=== PATIENT | male | born 1970 | race Caucasian/White ===

== ENCOUNTER 2018-03-04 15:35 | Inpatient (IN) ==
[2018-03-04] MEDS ORDERED: Aluminum/Magnesium/Simethacone Susp 30 ML UDC PO PRN (20:03)
[2018-03-05] MEDS ORDERED: Influenza (Quadrivalent) Vaccine 0.5 ML Syringe IM ONE (09:00)
[2018-03-05] MEDS: Acetaminophen 325 MG Tablet PO PRN ×2 (09:44→16:00)
[2018-03-05] MEDS ORDERED: Loperamide 2 MG Capsule PO PRN (11:03)
[2018-03-05] MEDS ORDERED: Methocarbamol 500 MG Tablet PO PRN (11:04)
[2018-03-05] MEDS: QUEtiapine 100 MG Tablet PO SCH ×2 (11:41→21:38)
--- NOTE | 2018-03-05 12:39 | P.TTN ---
- Patient Problems Problems: 1. Discharge planning 2. Medication compliance 3. Knowledge deficit 4. Lack of coping skills - Progress Toward Goals Provider Present: Dr. Hemanth Kwon (Dr. Kwon will meet with the patient today to determine if the patient needs to remain for further stabilization.) Psychiatric Counselors Present: Manfred Carr Jr., [facility] (Patient reports he lives with a friend and will return upon discharge.) Group Spec/RT/OT/BEATTY Present: ROGERIO Stafford (Patient does not attend groups at this time.) - Documentation Teaching Recipient: Patient
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
--- NOTE | 2018-03-05 14:11 | P.DIET ---
Nutritional Evaluation Type of nutrition evaluation: initial Nutrition consult regarding: Diet Evaluation Nutrition screening: Weight Loss > 10 lbs Screening comments: 03/04 WLS Objective - Diagnosis depression, SI - Objective Body Mass Index: 24.8 % IBW: 113 (IBW = 124lb) Body Weight Used for Calculations: Actual (63.5kg) Energy Needs - Lower Range (kCal/kg): 22 Energy Needs - Upper Range (kCal/kg): 28 Lower Limit kCal/kg (kCals): 1,395 Upper Limit kCal/kg (kCals): 1,778 Lower Limit Protein Factor (Grams per Kg): 1.1 Upper Limit Protein Factor (Grams per Kg): 1.3 Lower Protein Needs (Protein): 70 Upper Protein Needs (Protein): 83 Dietitian Reviewed in Medical Record: Current diet, Curent medications, Intake & Output, Labs, Medical history Diet Order: regular Oral Diet Intake Amount: Excellent 90%+ Assessment Assessment: Pt currently at nutritional risk r/t reported unplanned wt loss more than 10 lbs. Pt has a good appetite, eating 100% of most meals. RD will continue to assess pts needs for a PO supplement. Continue to monitor PO intake. Wt noted, CBW = 63.5kg. Dietitian following. Recommendations: 1. RD will continue to assess pts needs for a PO supplement 2. Continue to monitor PO intake 3. Dietitian following Dietitian to Monitor: Lab values, Intake & Output, PO Intake
--- NOTE | 2018-03-05 17:47 | P.CONIM ---
History of Present Illness Service: [facility] Consult date: 03/05/18 Requesting Physician: Jj Kwon Reason for Consult: Cellulitis Primary Care Provider: UNKNOWN Chief Complaint: "Left Foot Pain" History of Present Illness: Patient is a 47-year-old male with past medical history reported to be HIV, hep C, opiate dependence who initially came into the hospital transferred from [place] emergency department for suicidal ideation with plan to overdose. Patient is now admitted to psychiatry unit for further evaluation. Consulted for assistance with complaints of left foot pain/cellulitis. Patient seen and examined today. Laying in bed. Responds to questions and commands. On the behavior of looking around while talking. States that he has been walking around barefoot and has wounds on his foot. States he does not know how long as the wound been there but states it has been cleaned out when he got admitted to the hospital. Patient states he continues to walk barefoot in the unit. Admits to tobacco use, every day alcohol use, illicit drug use marijuana, cocaine, heroin stating "all the drugs out there." Denies fevers, chills, nausea, vomiting. Denies any chest pain, palpitation, headaches. Denies inability to walk but states it is painful to walk with the wounds. Review of Systems All other systems reviewed negative except as stated in HPI PMFSH - History History Provided By: Patient - Medical History Medical History: Medical History (Last Updated 03/05/18 @ 17:42 by JESSICA Bhagat) HIV (human immunodeficiency virus infection) Hepatitis C - Surgical History Surgical History: Surgical History (Last Updated 03/05/18 @ 17:41 by JESSICA Bhagat) No history of previous surgery - Family History Family History: Family History (Last Reviewed 03/05/18 @ 17:41 by JESSICA Bhagat) Mother Schizophrenia Other Substance abuse - Social History I have reviewed the patient's Social History: Yes - Tobacco History Second Hand Smoke Exposure: Yes Tobacco Use In Past 30 Days: Yes Smoking Status: Heavy tobacco smoker Tobacco Type: Cigarettes Packs Per Day: 1 Number of Pack Years (if former smoker): 20 - Alcohol History How Often Do You Have a Drink Containing Alcohol: 4 or more times a week - Substance Use History Substance History: Active Abuse - Substance Use Type Opiates Status: Active Route Used: Intravenously Frequency: DAILY Last Used: 03/03/2018 Reason for Use: Feels Good Comment: Patient reports he last used 2 days prior. Crack/Cocaine Status: Active Route Used: Inhalation, Intravenously Frequency: OCCASIONAL Reason for Use: Feels Good - Travel History Recent Travel in the [place] Within the Last 8 Weeks: No Recent Travel Out of the Country Within the Last 8 Weeks: No - Immunization History Tetanus Immunization: Unsure Hx Influenza Vaccine This Season: No Medications and Allergies Active Medications: Active Medications Acetaminophen (Tylenol) 650 mg PO Q4H PRN PRN Reason: Pain 1-5 or Temp >101F Last Admin: 03/05/18 09:44 Dose: 650 mg Al Hydrox/Mg Hydrox/Simethicone (Mag-Al Plus Susp Liq) 30 ml PO Q6H PRN PRN Reason: DYSPEPSIA Last Admin: 03/05/18 09:44 Dose: 30 ml Al Hydroxide/Mg Hydroxide (Milk Of Magnesia Liq) 30 ml PO DAILY PRN PRN Reason: CONSTIPATION Al Hydroxide/Mg Hydroxide (Milk Of Magnesia Liq) 30 ml PO Q12H PRN PRN Reason: Mild Constipation Bacitracin (Baciguent Oint) 1 applicatio TOPICAL BID [facility] Clonidine HCl (Catapres) 0.1 mg PO Q6H PRN PRN Reason: opiate withdrawal Last Admin: 03/05/18 11:50 Dose: 0.1 mg Diphenhydramine HCl (Benadryl) 50 mg PO HS PRN PRN Reason: INSOMNIA Hydroxyzine HCl (Atarax) 50 mg PO Q6H PRN PRN Reason: ANXIETY Last Admin: 03/05/18 09:44 Dose: 50 mg Ibuprofen (Motrin) 800 mg PO Q8H PRN PRN Reason: Acute Pain Last Admin: 03/05/18 11:49 Dose: 800 mg Loperamide HCl (Imodium) 2 mg PO Q4H PRN PRN Reason: diarrhea Methocarbamol (Robaxin) 750 mg PO Q6HR PRN PRN Reason: MUSCLE PAIN Last Admin: 03/05/18 16:01 Dose: 750 mg Nicotine (Habitrol 21 Mg Patch.24 Hr) 1 patch T-DERMAL DAILY [facility] Last Admin: 03/05/18 09:39 Dose: Not Given Ondansetron HCl (Zofran Odt) 4 mg PO Q6H PRN PRN Reason: NAUSEA Last Admin: 03/05/18 11:50 Dose: 4 mg Patch Removal (Remove Old Patch) 1 each T-DERMAL HS [facility] Quetiapine Fumarate (Seroquel) 100 mg PO BID [facility] Last Admin: 03/05/18 11:41 Dose: 100 mg Allergies Allergy/AdvReac Type Severity Reaction Status Date / Time bee venom protein (honey bee) Allergy Severe Anaphylaxis Verified 03/04/18 18:26 Home Medications Medication Instructions Recorded Confirmed Type buprenorphine-naloxone [Suboxone] 1 tab SUBLINGUAL BID 03/05/18 03/05/18 History Exam Vital signs: Vital Signs 03/04/18 18:00 03/05/18 05:39 03/05/18 11:50 Temperature 98.5 F 98.1 F Pulse Rate 71 68 59 L Respiratory Rate 18 18 12 Blood Pressure 124/68 147/81 H 141/73 H Pulse Oximetry 97 99 98 03/05/18 16:01 Temperature 98.2 F Pulse Rate 51 L Respiratory Rate 17 Blood Pressure 153/72 H Pulse Oximetry 100 Intake & Output 03/04/18 03/05/18 03/05/18 18:59 06:59 18:59 Weight 63.503 kg Other: Weight On Admission 63.503 kg Narrative: GENERAL: This is a well-developed patient, in no apparent distress. SKIN: Warm and dry. Bilateral foot with multiple lacerations in the area of the plantar region at the bottom of toe joints. Plantar region pink, tender to touch HEENT: Normocephalic. Pupils equal round and reactive. Nose without bleeding. Airway patent. NECK: Trachea midline. CARDIOVASCULAR: Regular rate and rhythm without murmurs, gallops, or rubs. RESPIRATORY: Clear to auscultation. Breath sounds equal bilaterally. No wheezes , rales, or rhonchi. GASTROINTESTINAL: Abdomen soft, non-tender, nondistended. Bowel Sounds normoactive x4. MUSCULOSKELETAL: Extremities without clubbing, cyanosis, or edema. NEUROLOGICAL: Awake and alert.No focal neuro deficit. Moves all extremities. Normal speech. Assessment and Plan - Plan Patient is a 47-year-old male with past medical history reported to be HIV, hep C, opiate dependence who initially came into the hospital transferred from [place] emergency department for suicidal ideation with plan to overdose. Patient is now admitted to psychiatry unit for further evaluation. Consulted for assistance with complaints of left foot pain/cellulitis Suicidal ideation Depression -Managed by psychiatry team Cellulitis Multiple wound under the foot left greater than the right -Appears to be from walking barefoot, patient appears to be homeless -Bacitracin, Keflex times 5 days -Keep wounds clean -Needs to wear foot wear or socks at least in the unit, this has been discussed with nursing HIV Hep C -Patient reports not on any medication -Check HIV status, Hepatitis status. No record of HIV/ Hep status -Refer to outpatient clinic to start regimen, will not start on any regimen DVT prop ambulatory Code Status: Full code Discussed Condition With: Patient, nurse Discharge Planning: DC disposition by primary team
[2018-03-05] MEDS ORDERED: Haloperidol Inj 5 MG/ML Ampul IM ONE (21:15)
[2018-03-05] MEDS ORDERED: Haloperidol Inj 5 MG/ML Ampul ONE (21:20)
[2018-03-06 08:07] LABS: Baso # (Auto) 0.1 th/mm3 (0.0-0.2); Baso % (Auto) 0.3 % (0.0-2.0); Eos % (Auto) 0.2 % (0.0-4.0); Hematocrit 42.1 % (39.0-51.0); Hemoglobin 14.3 gm/dL (13.0-17.0); Lymph # (Auto) 3.2 th/mm3 (1.0-4.8); Lymph % (Auto) 21.8 % (9.0-44.0); Mean Corpuscular Volume 100.1 fL (80.0-100.0); Mean Platelet Volume 9.1 fL (7.0-11.0); Mono # (Auto) 0.9 th/mm3 (0.0-0.9); Mono % (Auto) 5.9 % (0.0-8.0); Neut # (Auto) 10.7 th/mm3 (1.8-7.7); Neut % (Auto) 71.8 % (16.0-70.0); Platelet Count 244 th/mm3 (150-450); Red Blood Count 4.21 mil/mm3 (4.50-5.90); Red Cell Distribution Width 15.8 % (11.6-17.2); White Blood Count 14.9 th/mm3 (4.0-11.0)
[2018-03-06] MEDS: QUEtiapine 100 MG Tablet PO SCH ×2 (08:10→20:03)
[2018-03-06 08:36] LABS: Anion Gap 8 meq/L (5-15); Blood Urea Nitrogen 13 mg/dL (7-18); Calcium 8.6 mg/dL (8.5-10.1); Carbon Dioxide 22.3 meq/L (21.0-32.0); Chloride 102 meq/L (98-107); Glomerular Filtration Rate Greater Than 89 mL/min (>89); Glucose,Random 113 mg/dL (74-106); Potassium 3.8 meq/L (3.5-5.1); Sodium 132 meq/L (136-145)
[2018-03-06 09:49] LABS: Albumin 3.1 g/dL (3.4-5.0)
[2018-03-06 09:51] LABS: Total Protein 8.4 g/dL (6.4-8.2)
[2018-03-06 10:46] LABS: Hepatitis A IgM Antibody Reactive (Nonreactive); Hepatitits B Surface Antigen Reactive (Nonreactive)
--- NOTE | 2018-03-06 13:30 | P.PNPSY ---
Subjective Chief Complaint: Depression with suicidal ideation Remarks: Patient seen in his room with medical student Edgard and nurse Estella, chart reviewed, patient compliant medication. Patient laying in bed with covers to his chin. Patient is calm and more cooperative with me today that appears she did have some behavioral issues late last night necessitating MDT of [facility]. However today he is calm and cooperative he did allow the laboratory to be drawn this morning and he has signed the voluntary admission forms. Today he denies suicidality but states he still is under stress. They now acknowledges his homelessness and his long distance walking around town. He states he is able to go to his father's for a while but they do get along okay. For now continue treatment consider possible discharge tomorrow to his family Review of Systems All other systems reviewed negative except as stated in HPI Mental Status Examination Appearance: Appropriate, Disheveled Consciousness: Alert Orientation: x4 Motor Activity: Normal gait Speech: Unremarkable Language: Adequate Fund of Knowledge: Adequate Attention and Concentration: Adequate (Fair) Memory: Unremarkable (Fair) Mood: Sad, Irritable (Improved), Other (Entitled) Affect: Other (Good range and intensity) Thought Process & Associations: Intact Thought Content: Appropriate Hallucination Type: Auditory (Vague) Delusion Type: Paranoid (Mildly) Suicidal Ideation: Yes (Denies today's) Suicidal Plan: No Suicidal Intention: No Homicidal Ideation: No Homicidal Plan: No Homicidal Intention: No Insight: Poor Judgment: Poor Assessment and Plan - Assessment (1) Unspecified psychosis Code(s): F29 - Unspecified psychosis not due to a substance or known physiological condition Status: Acute (2) Substance induced mood disorder Code(s): F19.94 - Other psychoactive substance use, unspecified with psychoactive substance-induced mood disorder Status: Acute (3) Opiate dependence Code(s): F11.20 - Opioid dependence, uncomplicated Status: Acute - Plan Plan: Estimated LOS: [] days Patient somewhat calmer and more focused today. He is not as angry. He is compliant with medication. He denies suicidality today. He does acknowledge that he can return home with his father once he is discharged. Patient continues to approval discharged tomorrow Justification for Continued Inpatient Stay: At this time patient may need decompensated placed on a lower level of care Discharge Planning: Possible return home with his father Request Healthcare Surrogate/Guardian Advocate?: No (3) Opiate dependence Qualifiers: Substance use status: in withdrawal Qualified Code(s): F11.23 - Opioid dependence with withdrawal
--- NOTE | 2018-03-06 16:23 | P.PNIM ---
Subjective Interval history: Follow-up visit bilateral foot cellulitis, hepatitis ABC. Patient seen and examined today. Patient states that bilateral foot has improved and is not as painful anymore. Discussed with patient results of labs. Verbalized understanding. Denies pain and discomfort. Denies SOB/ dyspnea. Denies chest pain, palpitations, headaches, dizziness. Denies fevers, chills, n/v/d. Denies hematuria, dysuria. Physical Exam Vital signs: Intake & Output 03/05/18 03/06/18 03/06/18 18:59 06:59 18:59 Other: Date of Last Bowel Movement 03/06/18 Narrative: GENERAL: This is a well-developed patient, in no apparent distress. SKIN: Warm and dry. Bilateral foot with multiple lacerations in the area of the plantar region at the bottom of toe joints. Plantar region pink, tender to touch HEENT: Normocephalic. Pupils equal round and reactive. Nose without bleeding. Airway patent. NECK: Trachea midline. CARDIOVASCULAR: Regular rate and rhythm without murmurs, gallops, or rubs. RESPIRATORY: Clear to auscultation. Breath sounds equal bilaterally. No wheezes , rales, or rhonchi. GASTROINTESTINAL: Abdomen soft, non-tender, nondistended. Bowel Sounds normoactive x4. MUSCULOSKELETAL: Extremities without clubbing, cyanosis, or edema. NEUROLOGICAL: Awake and alert.No focal neuro deficit. Moves all extremities. Normal speech. Results - Labs CBC & Chem 7: 03/06/18 07:08 03/06/18 07:08 Laboratory Results - last 24 hr 03/06/18 03/06/18 03/06/18 07:08 07:08 09:03 WBC 14.9 H RBC 4.21 L Hgb 14.3 Hct 42.1 MCV 100.1 H MCH 34.0 MCHC 34.0 RDW 15.8 Plt Count 244 MPV 9.1 Neut % (Auto) 71.8 H Lymph % (Auto) 21.8 [place]ides % (Auto) 5.9 Eos % (Auto) 0.2 Baso % (Auto) 0.3 Neut # (Auto) 10.7 H Lymph # (Auto) 3.2 [place]ides # (Auto) 0.9 Eos # (Auto) 0.0 Baso # (Auto) 0.1 WBC Differential . Differential Comment Auto diff final Sodium 132 L Potassium 3.8 Chloride 102 Carbon Dioxide 22.3 Anion Gap 8 BUN 13 Creatinine 0.90 Estimated GFR Greater than 89 Random Glucose 113 H Calcium 8.6 Total Bilirubin 0.5 Direct Bilirubin 0.3 H Indirect Bilirubin 0.2 AST 33 ALT 61 Alkaline Phosphatase 98 Total Protein 8.4 H Albumin 3.1 L Hepatitis A IgM Ab Hep Bs Antigen Hep B Core IgM Ab Hep C IgG Ab HIV 1&2 Ab/P24 Ag 4thGn 03/06/18 09:03 WBC RBC Hgb Hct MCV MCH MCHC RDW Plt Count MPV Neut % (Auto) Lymph % (Auto) [place]ides % (Auto) Eos % (Auto) Baso % (Auto) Neut # (Auto) Lymph # (Auto) [place]ides # (Auto) Eos # (Auto) Baso # (Auto) WBC Differential Differential Comment Sodium Potassium Chloride Carbon Dioxide Anion Gap BUN Creatinine Estimated GFR Random Glucose Calcium Total Bilirubin Direct Bilirubin Indirect Bilirubin AST ALT Alkaline Phosphatase Total Protein Albumin Hepatitis A IgM Ab Reactive H Hep Bs Antigen Reactive H Hep B Core IgM Ab Nonreactive Hep C IgG Ab Reactive H HIV 1&2 Ab/P24 Ag 4thGn Nonreactive Assessment and Plan - Plan Patient is a 47-year-old male with past medical history reported to be HIV, hep C, opiate dependence who initially came into the hospital transferred from [place] emergency department for suicidal ideation with plan to overdose. Patient is now admitted to psychiatry unit for further evaluation. Consulted for assistance with complaints of left foot pain/cellulitis Suicidal ideation Depression -Managed by psychiatry team Cellulitis Multiple wound under the foot left greater than the right -Appears to be from walking barefoot, patient appears to be homeless -Bacitracin, Keflex times 5 days -Keep wounds clean -Needs to wear foot wear or socks at least in the unit, this has been discussed with nursing -Improved pain. Improve edema Hep C, B, A -Patient reports not on any medication -Patient is negative for HIV screening -Refer to outpatient clinic to start regimen, will not start on any regimen. This has been discussed extensively with patient. Also discussed with patient risk of having hepatitis without treatment, not excluding . Discussed modes of transmission and precautions necessary to be taken. Verbalized understanding DVT prop ambulatory CODE STATUS: Full code Discussed with patient, nursing Stable from Hospitalist standpoint. We will sign off. Reconsult as needed. Thank you. Discharge Planning: DC disposition by primary team
[2018-03-06 17:40] VITALS: O2SAT 98
[2018-03-07 05:51] VITALS: BP 142/91; PULSE 62; RESP 18; TEMP 98.5
[2018-03-07] MEDS: QUEtiapine 100 MG Tablet PO SCH (09:00)
--- NOTE | 2018-03-07 10:17 | P.DSPSY ---
Psychiatry Discharge Summary Inpatient Psychiatric care?: Yes Advance Directives: No Mental Health Advance Directive: No Health Care Proxy: No - Admission Admission Date: March 04, 2018 17:11 - Admission Diagnosis (1) Unspecified psychosis Code(s): F29 - Unspecified psychosis not due to a substance or known physiological condition (2) Substance induced mood disorder Code(s): F19.94 - Other psychoactive substance use, unspecified with psychoactive substance-induced mood disorder (3) Opiate dependence Code(s): F11.20 - Opioid dependence, uncomplicated Brief History: See my initial psychiatric evaluation dictated on 03/05 Tobacco Use In Past 30 Days: Yes How Often Do You Have a Drink Containing Alcohol: 4 or more times a week Hospital Course: His hospital course was uneventful, he was no behavioral problems, though he did not interact with the milieu of the patient's or staff with any degree of involvement. He has been compliant with his medications. He now denies suicidality or homicidality voices or visions. He states he has talked with his father's father is going to have him come and stay with him for a period of time. At this time patient has reached maximum benefit of this hospitalization. Thus will be discharged today to himself with Rx times 1 month follow-up stroke [place] act medication management and substance abuse treatment - Discharge Discharge Date: 03/07/18 - Discharge Diagnosis (1) Unspecified psychosis Diagnosis: Principal Code(s): F29 - Unspecified psychosis not due to a substance or known physiological condition Status: Acute (2) Substance induced mood disorder Diagnosis: Secondary Code(s): F19.94 - Other psychoactive substance use, unspecified with psychoactive substance-induced mood disorder Status: Acute (3) Opiate dependence Diagnosis: Secondary Code(s): F11.20 - Opioid dependence, uncomplicated Status: Acute Discharge Disposition: Home - Discharge Instructions Discharge Diet: Regular Diet Activities You Can Perform: Regular- No Restrictions - Discharge Time > 30 minutes Mental Status Examination Appearance: Appropriate, Disheveled Consciousness: Alert Orientation: x4 Motor Activity: Normal gait Speech: Unremarkable Language: Adequate Fund of Knowledge: Adequate Attention and Concentration: Adequate (Fair) Memory: Unremarkable (Fair) Mood: Sad, Irritable (Improved), Other (Entitled) Affect: Other (Good range and intensity) Thought Process & Associations: Intact Thought Content: Appropriate Hallucination Type: Auditory (Vague) Delusion Type: Paranoid (Mildly) Suicidal Ideation: Yes (Denies today's) Suicidal Plan: No Suicidal Intention: No Homicidal Ideation: No Homicidal Plan: No Homicidal Intention: No Insight: Poor Judgment: Poor Discharge/Advance Care Plan - Results Vital Signs: Last Vital Signs Temp 98.5 F 03/07/18 05:50 Pulse 62 03/07/18 05:50 Resp 18 03/07/18 05:50 BP 142/91 H 03/07/18 05:50 Pulse Ox 98 03/07/18 05:50 Lab Results: Abnormal Lab Results 03/06/18 09:03 Hepatitis A IgM Ab Reactive H Hep Bs Antigen Reactive H Hep B Core IgM Ab Nonreactive Hep C IgG Ab Reactive H HIV 1&2 Ab/P24 Ag 4thGn Nonreactive Summary of Procedures: None done Pending Results: None - Medications Number of antipsychotic medications at discharge: 1 - Discharge Care Plan Goals to Promote Your Health: * To prevent worsening of your condition and complications * To maintain your health at the optimal level Directions to Meet Your Goals: Take your medications as prescribed Follow your dietary instruction Follow activity as directed Keep your appointments as scheduled Take your immunizations and boosters as scheduled If your symptoms worsen call your PCP, if no PCP go to Urgent Care Center or Emergency Room For 29/10 questions related to your inpatient stay or results of tests pending at discharge, please contact Dr. Jj Kwon MD at Smoking is Dangerous to Your Health. Avoid second hand smoking (1) Unspecified psychosis Qualifiers: Psychosis type: brief psychotic disorder Qualified Code(s): F23 - Brief psychotic disorder (3) Opiate dependence Qualifiers: Substance use status: in withdrawal Qualified Code(s): F11.23 - Opioid dependence with withdrawal (1) Unspecified psychosis Qualifiers: Psychosis type: brief psychotic disorder Qualified Code(s): F23 - Brief psychotic disorder (3) Opiate dependence Qualifiers: Substance use status: in withdrawal Qualified Code(s): F11.23 - Opioid dependence with withdrawal
== END 2018-03-07 11:20 | disposition home or self-care (01) ==
LOC: H270 17:11
PROVIDERS: ADMIT Psychiatry & Neurology Psychiatry; ATTEND Psychiatry & Neurology Psychiatry
CPT/HCPCS: 80048; 80074; 80076; 85025; 87389; J1630; J2060; Q0163